=== PATIENT | female | born 1985 | race Caucasian/White ===

== ENCOUNTER → 2020-03-20 | Outpatient (CLI) | payer BC | LOC: M.ULTRA 03-15 10:11 | PROVIDERS: ATTEND Nurse Practitioner Family | DX: N88.8 Other specified noninflammatory disorders of cervix uteri (principal); N92.0 Excessive and frequent menstruation with regular cycle ==

== ENCOUNTER 2020-06-10 19:28 | Emergency (ER) | payer OTHER ==
[~2020-06-10] VITALS: Ht 154.9 cm; Wt 68.0 kg
[2020-06-10 20:07] LABS: URINE BILIRUBIN NEGATIVE (Negative); URINE BLOOD NEGATIVE (Negative); URINE COLOR YELLOW; URINE GLUCOSE-RANDOM NEGATIVE (Negative); URINE KETONES 1+ (Negative); URINE LEUKOCYTES-REFLEX 1+ (Negative); URINE NITRITE-REFLEX NEGATIVE (Negative); URINE PROTEIN NEGATIVE (Negative); URINE SPECIFIC GRAVITY 1.025 (1.005-1.030); URINE UROBILINOGEN 0.2 E.U./dl (0.2-1.0)
[2020-06-10 20:09] LABS: URINE CLARITY HAZY
[2020-06-10 20:14] LABS: CASTS None Seen /LPF (None Seen); CRYSTALS None Seen /LPF (None Seen); SQUAMOUS >10 Many /LPF (0-3); URINE RBC None Seen /HPF (0-2); URINE WBC-REFLEX 6-15 Few /HPF (0-5)
[2020-06-10 20:18] LABS: ABSOLUTE BASOPHILS 0.1 thou/uL (0.0-0.2); ABSOLUTE EOSINOPHILS 0.3 thou/uL (0.0-0.7); ABSOLUTE LYMPHOCYTES 2.9 thou/uL (0.8-5.3); ABSOLUTE MONOCYTES 0.5 thou/uL (0.0-1.2); ABSOLUTE NEUTROPHILS 6.9 thou/uL (1.6-8.1); BASOPHILS 0.5 %; EOSINOPHILS 2.5 %; HEMATOCRIT 39.4 % (37.0-47.0); HEMOGLOBIN 13.1 gm/dL (12.0-15.0); LYMPHOCYTES 27.2 %; MCH 29.6 pg (26.0-34.0); MCHC 33.4 g/dL (28.0-37.0); MCV 88.6 fL (80.0-100.0); MONOCYTES 5.1 %; MPV 8.5 fl. (7.2-11.1); NUCLEATED RBCS 0 /100WBC; PLATELET COUNT* 307 thou/uL (150-400); POLYS 64.7 %; RBC 4.44 mil/uL (4.20-5.00); RDW-CV 13.3 % (10.5-14.5); WBC 10.7 thou/uL (4.0-11.0)
[2020-06-10 20:26] LABS: CALCIUM 9.3 mg/dL (8.5-10.1); CREATININE 0.9 mg/dL (0.6-1.3); POTASSIUM 3.6 mmol/L (3.5-5.1)
[2020-06-10 20:30] LABS: ALBUMIN 4.3 g/dL (3.4-5.0); TOTAL BILIRUBIN 0.5 mg/dL (<0.1-1.0); TOTAL PROTEIN 8.1 g/dL (6.4-8.2)
[2020-06-10] MEDS ORDERED: PERCOCET PO (22:23)
[2020-06-10] MEDS ORDERED: ZOFRAN ODT4 MG PO (22:23)
[2020-06-10 22:41] VITALS: BP 153/90
== END 2020-06-10 22:41 | disposition home or self-care (01) ==
LOC: M.ERS 19:28
PROVIDERS: Personal Emergency Response Attendant
DX: K80.20 Calculus of gallbladder without cholecystitis without obstruction (principal); Z88.5 Allergy status to narcotic agent

== ENCOUNTER → 2020-06-27 | Outpatient (CLI) | payer OTHER ==
[~2020-06-27] MED LIST: NOHOMEMEDICATIONS; PERCOCET PO; ZOFRAN ODT4 MG PO
== END ==
LOC: M.LAB 09:04
PROVIDERS: ATTEND Surgery
DX: Z01.812 Encounter for preprocedural laboratory examination (principal); Z20.828 Contact with and (suspected) exposure to other viral communicable diseases; K80.20 Calculus of gallbladder without cholecystitis without obstruction

== ENCOUNTER → 2020-07-02 | Day surgery (SDC) | payer OTHER ==
[~2020-07-02] MED LIST changes: +PERCOCET 5-3251 EACH PO
--- NOTE | 2020-07-04 13:12 | PATH ---
[facility] [address] [place] [address] PATHOLOGY RPT PROCEDURE Name: ANGELA BACH Room: [facility]#: [id number] Admission: 07/02/20 Date of : 85 Discharge: Report #: [id number] Path Case #: [id number] [facility] Accession Number: [id number] . 01 Material submitted: . gallbladder - GALLBLADDER AND CONTENTS . 01 Clinical history: . GALLSTONES . 02 Diagnosis: Gallbladder and contents: - Chronic and acute cholecystitis with erosion and fibrosis and cholelithiasis. (MARIANO:pit 07/04/2020) P 07/04/2020 1135 Local . 02 Electronically signed: . Hank Quiroz MD, Pathologist NPI- [id number] . 01 Gross description: . The specimen is received in formalin, labeled "Angela Singell, gallbladder and contents". Received is an intact gallbladder measuring 6.8 x 2.1 x 2.0 cm in greatest dimensions displaying a pink-ross serosal surface. Opening the specimen reveals a velvety, pink-zimmer mucosa with a gallbladder wall thickness of 0.1 cm. Calculi are present displaying a bright yellow and nodular to fragmented appearance, and no masses or lesions are noted grossly. [employer] sections, to include the proximal margin, are submitted in cassette A1. (CAA; 07/03/2020) QA/[facility] 07/03/2020 1203 Local . 02 Pathologist provided ICD-10: K80.12 . 02 CPT . 113375 Specimen Comment: A courtesy copy of this report has been sent to [phone], [phone] Specimen Comment: [phone] Specimen Comment: Report sent to / DR SOLIS Performed at: [address] [id number] MD Clem Main MD Phone: [phone] Performed at: [address] [address] PATHOLOGY RPT PROCEDURE Name: ANGELA BACH Room: [facility]#: [id number] Admission: 07/02/20 Date of : 85 Discharge: Report #: [id number] Path Case #: [id number] [address] [place] [id number] MD Hank Quiroz MD Phone: [phone]
== END | disposition home or self-care (01) ==
LOC: M.SUR 06:09
PROVIDERS: ATTEND Surgery
DX: K80.12 Calculus of gallbladder with acute and chronic cholecystitis without obstruction (principal); R10.11 Right upper quadrant pain; Z88.8 Allergy status to other drugs, medicaments and biological substances